=== PATIENT | female | born 2005 | race Caucasian/White ===

== ENCOUNTER 2024-08-02 17:21 | Emergency (ER) | payer BC ==
[~2024-08-02] VITALS: Ht 154.9 cm; Wt 60.8 kg
[2024-08-02] MEDS ORDERED: HYDR-3686 PO (19:05)
[2024-08-02 19:13] VITALS: BP 121/65; PULSE 81; RESP 16; TEMP 97.7; O2SAT 99
[2024-08-02] MEDS: LORazepam 1 MG tablet PO ONE (19:21)
== END 2024-08-02 19:25 | disposition home or self-care (01) ==
LOC: ER 17:22
DX: F41.0 Panic disorder [episodic paroxysmal anxiety] (principal)
CPT/HCPCS: 99283

== ENCOUNTER 2024-08-03 22:49 | Emergency (ER) | payer BC ==
[~2024-08-03] VITALS: Ht 154.9 cm; Wt 61.4 kg
[~2024-08-03 22:49] MED LIST: HYDR-3686 PO
[2024-08-03 22:52] VITALS: BP 132/87; PULSE 120; RESP 18; O2SAT 97
[2024-08-04] MEDS: ondansetron 4mg rapidly disintigrating tab PO ONE (00:30)
[2024-08-04 00:49] VITALS: TEMP 98.5
[2024-08-04] MEDS: LORazepam 1 MG tablet PO ONE (00:54)
== END 2024-08-04 00:57 | disposition home or self-care (01) ==
LOC: ER 22:50
DX: F41.9 Anxiety disorder, unspecified (principal); Z79.899 Other long term (current) drug therapy
CPT/HCPCS: 99283

== ENCOUNTER 2024-08-06 13:33 | Emergency (ER) | payer BC ==
[~2024-08-06] VITALS: Ht 154.9 cm; Wt 57.1 kg
[2024-08-06 20:06] VITALS: BP 120/82; PULSE 99; RESP 18; TEMP 98.6; O2SAT 99
== END 2024-08-06 20:09 | disposition home or self-care (01) ==
LOC: ER 13:34
DX: F41.9 Anxiety disorder, unspecified (principal)
CPT/HCPCS: 99281

== ENCOUNTER 2024-08-08 05:23 | Emergency (ER) | payer BC ==
[~2024-08-08] VITALS: Ht 154.9 cm; Wt 56.8 kg
[2024-08-08] MEDS ORDERED: LORA-268 PO (09:57)
[2024-08-08 10:31] VITALS: BP 120/79; PULSE 75; RESP 17; TEMP 99.2; O2SAT 99
== END 2024-08-08 10:39 | disposition home or self-care (01) ==
LOC: ER 05:23
DX: F41.0 Panic disorder [episodic paroxysmal anxiety] (principal); F32.A Depression, unspecified; Z79.899 Other long term (current) drug therapy
CPT/HCPCS: 71045; 99283

== ENCOUNTER 2025-04-28 01:56 | Emergency (ER) | payer BC ==
[~2025-04-28] VITALS: Ht 154.9 cm; Wt 53.1 kg
[~2025-04-28 01:56] MED LIST changes: +LORA-268 PO
[2025-04-28 02:07] VITALS: TEMP 98.8
[2025-04-28 02:35] LABS: URINE HCG NEGATIVE (NEG)
[2025-04-28 04:37] LABS: LEUKOCYTE ESTERASE ,URINE NEGATIVE (Neg); NITRITES, URINE NEGATIVE (Neg); OCCULT BLOOD,URINE NEGATIVE (Neg)
[2025-04-28 04:38] LABS: UA COLLECTION TYPE NON-SPECIFIED
[2025-04-28 04:48] LABS: SQUAMOUS EPITHELIAL CELL,UR FEW /LPF (FEW)
[2025-04-28 04:49] LABS: AMORPHOUS PHOSPHATES 1+
--- NOTE | 2025-04-28 05:05 | Physician Documentation ---
History of Present Illness ~ Chief Complaint: Back Pain Stated Complaint: BACK & CHEST PAIN SOB Time Seen by MD: 02:23 Primary Medical Doctor: NONE HPI 19 year old female that started in her right shoulder at about 2000 last night, wrapped around her body to the other side, felt other vague sensations like cold, body aches. Denies fever, sore throat, urinary symptoms, N/V/D, chest pain, shortness of breath. Medication Reconciliation Allergies: Coded Allergies: No Known Allergies (Unverified , 08/08/24) Scheduled Hydroxyzine Hcl (Atarax), 1 TAB PO Q8H Scheduled PRN Lorazepam (Ativan), 1 TAB PO TID PRN for anxiety Past Medical History Past Medical History: Anxiety Review of Systems All Other Systems at this time: Reviewed and Negative Physical Exam Physical Exam Vital Signs: RN Vital Signs have been reviewed: Yes, Temperature: 98.8, Heart Rate: 88, Respiratory Rate: 16, BP: 130/78, Pulse Oximetry: 98, Weight: 53.100 Oxygen Flow Rate: 0 Physical Exam Gen: no distress HEENT: PERRL, EOMI Pulm: no distress CTAB Cardiac: RRR no m/c/r Abdomen: deferred MSK: no deformity Skin: w/d/i Neuro: nonfocal Psych: unremarkable Progress Results/Orders Results/Orders Orders - ES WANG MD Chest,Single View (04/28/25 02:40) Completed Orders - ES WANG MD Hcg, Ur Ql (04/28/25 02:17) Chest,Single View (04/28/25 02:40) Ua W/Microscopic, Cult If Ind (04/28/25 02:13) Vital Signs 04/28/25 02:07 Temp 98.8 Pulse 88 Resp 16 B/P (MAP) 130/78 Pulse Ox 98 O2 Flow Rate 0 Laboratory Tests Test 04/28/25 02:13 Urine Specimen Description Non-specified Urine Color Yellow Urine Clarity Clear Urine pH 8.5 Urine Specific [place] 1.015 Urine Protein Trace Urine Glucose (UA) Negative Urine Ketones Negative Urine Occult Blood Negative Urine Nitrite Negative Urine Bilirubin Negative Urine Urobilinogen 0.2 Urine Leukocyte Esterase Negative Urine RBC None seen Urine WBC None seen Urine Squamous Epithelial Cells Few Urine Amorphous Phosphates 1+ Urine Bacteria None seen Urine Culture Indicated Not ind Volume Urine Centrifuged 10 ml Urine HCG, Qualitative Negative Urine Comment Medical Decision Making Additional information obtaine: N/A Findings 19 year old female with nonspecific symptoms as above. Exam and vitals unremarkable, UA/HCG/CXR unremarkable. Counseled reassured discharged with return precautions. Differential Dx:Considerations: Appendicitis, Ectopic , Fracture, Pancreatitis, Pyelonephritis, Urinary obstruction, Ovarian torsion, Renal infarction, Urinary tract infection Departure Disposition: HOME / SELF CARE / HOMELESS Impression: Primary Impression: Strain of thoracic region Condition: Stable Discharge Instructions: Acute Back Pain, Adult Referrals: NO PRIMARY CARE PROVIDER (PCP) Education Educated: Patient Educated regarding: diagnosis, treatment, prognosis, need for follow up Signature Scribe Signature: . Attestation: . ES WANG MD Apr 28, 2025 05:05
[2025-04-28 05:25] VITALS: BP 131/82; PULSE 80; RESP 16; O2SAT 98
--- NOTE | 2025-04-28 06:37 | RADIOLOGY REPORT ---
CHEST RADIOGRAPH INDICATION: chest/back pain TECHNIQUE: Single frontal view of the chest was obtained COMPARISON: DI CHEST,SINGLE VIEW on DOS: 08/08/24 FINDINGS: Lines and Tubes: None Lungs: No focal consolidation. Pleura: No effusion. No pneumothorax. Cardiomediastinal contours: Unremarkable Bones: No acute osseous abnormality. IMPRESSION: No acute cardiopulmonary disease.
== END 2025-04-28 05:28 | disposition home or self-care (01) ==
LOC: ER 01:57
DX: S29.012A Strain of muscle and tendon of back wall of thorax, initial encounter (principal); X58.XXXA Exposure to other specified factors, initial encounter; Y93.89 Activity, other specified; Y92.89 Other specified places as the place of occurrence of the external cause; Y99.8 Other external cause status
CPT/HCPCS: 71045; 81001; 81025; 99284